=== PATIENT | female | born 1980 ===

== ENCOUNTER 2018-05-10 19:11 | Inpatient (IN) | payer OTHER ==
[~2018-05-10] VITALS: Ht 162.6 cm; Wt 69.4 kg
[~2018-05-10 19:11] MED LIST: MACROBID 100 M100 MG PO; PERCOCET 5-3251 EACH PO; PYRIDIUM100 M1 PO
[2018-05-10] MEDS ORDERED: PRENATAL TABLE1 EAC1 PO (20:54)
[2018-05-10] MEDS ORDERED: ASA81 MG PO (20:55)
== END 2018-05-17 18:19 | disposition designated cancer center or children's hospital (05) | DRG 832 ==
LOC: OB/GYN 19:11 → LDR 19:11 → OB/GYN 05-11 18:41
PROVIDERS: ADMIT Obstetrics & Gynecology
PROC: 4A1HXCZ Monitoring of Products of Conception, Cardiac Rate, External Approach (ICD-10-PCS; 2018-05-10)
PROC: BY4FZZZ Ultrasonography of Third Trimester, Single Fetus (ICD-10-PCS; principal; 2018-05-16)
DX: O14.13 Severe pre-eclampsia, third trimester (principal); O47.03 False labor before 37 completed weeks of gestation, third trimester; Z34.03 Encounter for supervision of normal first pregnancy, third trimester